=== PATIENT | female | born 1965 | race African-American/Black ===

== ENCOUNTER 2017-12-02 01:18 | Emergency (ER) | payer MEDICAID ==
[~2017-12-02] VITALS: Ht 157.5 cm; Wt 91.0 kg
[~2017-12-02 01:18] MED LIST: METH500T6 PO; NAPR-681 PO; TERI14TA
[2017-12-02 01:52] VITALS: BP 152/94
== END 2017-12-02 07:37 | disposition left against medical advice (07) ==
LOC: ER 01:20
DX: Z53.21 Procedure and treatment not carried out due to patient leaving prior to being seen by health care provider (principal)

== ENCOUNTER 2020-10-20 20:06 | Emergency (ER) | payer SELFPAY ==
[~2020-10-20] VITALS: Ht 157.5 cm; Wt 49.0 kg
[~2020-10-20 20:06] MED LIST changes: +METH-773 PO; -METH500T6 PO
[2020-10-20] MEDS ORDERED: P50 MT (21:59)
[2020-10-20 22:12] VITALS: BP 175/97
== END 2020-10-20 22:13 | disposition home or self-care (01) ==
LOC: ER 20:06
DX: R20.0 Anesthesia of skin (principal); I10 Essential (primary) hypertension; G35 Multiple sclerosis; Z87.19 Personal history of other diseases of the digestive system
CPT/HCPCS: 99281